=== PATIENT | male | born 2000 | race African-American/Black ===

== ENCOUNTER 2019-06-21 05:48 | Observation (INO) | payer SELFPAY ==
[2019-06-21] MEDS ORDERED: Adacel (T-DAP) 0.5 ML SYRINGE ONE (06:04)
[2019-06-21] MEDS ORDERED: Morphine 4 MG/ML VIAL ONE (06:46)
[2019-06-21 07:10] LABS: Hemoglobin 16.2 g/dL (14.0-18.0); Mean Corpuscular HGB CONC 32.4 g/dL (32.0-36.0); Mean Corpuscular Hemoglobin 28.1 pg (25.0-35.0); Mean Corpuscular Volume 86.7 fL (78.0-98.0); RBC Distribution Width 11.6 % (11.5-14.5); Red Blood Cell (RBC) Count 5.77 mill/uL (4.00-5.20)
[2019-06-21 07:21] LABS: ALT (SGPT) 21 U/L (8-55); AST (SGOT) 36 U/L (5-34); Albumin 4.7 g/dL (3.5-5.0); Alkaline Phosphatase 133 U/L (50-130); Anion Gap 15 mmol/L (10-20); BUN (Urea Nitrogen) 10 mg/dL (8.9-20.6); Bilirubin, Total 0.5 mg/dL (0.2-1.2); Calc. Creatinine Clearance 0 mL/min (70-130); Calcium 9.7 mg/dL (7.8-10.44); Carbon Dioxide 23 mmol/L (22-29); Chloride 104 mmol/L (98-107); Estimated GFR-MDRD Greater than 90; Globulin 3.3 g/dL (2.4-3.5); Glucose 108 mg/dL (70-105); Sodium 138 mmol/L (136-145)
[2019-06-21 07:34] LABS: Band 2 % (5-11); Eosinophils 1 % (0-10); Lymphocytes 5 % (28-48); MDiff Complete? YES; Mean Platelet Volume 7.3 fL (7.4-10.4); Monocytes 9 % (0-4); Neutrophil 83 % (31-61); Platelet Count 189 thou/uL (130-400); Platelet Morphology Comment Appears Adequate; White Blood Cell (WBC) Count 18.2 thou/uL (4.8-10.8)
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
[2019-06-21] MEDS ORDERED: Iopamidol 370 76% 100 ML VIAL ONE (08:27)
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
[2019-06-21] MEDS ORDERED: Ondansetron PF 4 MG/2 ML Vial IVP PRN (10:43)
[2019-06-21] MEDS ORDERED: Dextrose 5% in Water 1,000 ML IV PRN (10:43)
[2019-06-21] MEDS ORDERED: Dextrose 50% Abboject 50 ML SYRINGE SLOW IVP PRN (10:43)
[2019-06-21] MEDS ORDERED: Cyclobenzaprine 10 MG TAB PO PRN (10:43)
[2019-06-21] MEDS ORDERED: traMADol HCl 50 MG TAB PO PRN (10:43)
[2019-06-21] MEDS ORDERED: Sodium Chloride 0.9% 1,000 ML IV SCH (10:43)
[2019-06-21] MEDS ORDERED: Ondansetron ODT 4 MG TAB PO PRN (10:43)
[2019-06-21 10:55] VITALS: BMI 21.4
[2019-06-21] MEDS ORDERED: Famotidine 20 MG TAB PO SCH (11:45)
[2019-06-21] MEDS: Acetaminophen 500 MG TAB PO SCH ×3 (12:10→23:13)
[2019-06-21] MEDS: Ibuprofen 600 MG TAB PO SCH ×2 (12:11→18:50)
--- NOTE | 2019-06-21 19:58 | CON ---
DATE OF CONSULTATION: 06/22/[address] chest, abdomen, and pelvis with contrast revealed a 10% compression fracture at L1 vertebral body and possible a nondisplaced T12 compression fracture. Treatment of a stable anterior middle column thoracolumbar spine injuries is initially with analgesics and recumbency for comfort for 1 to 3 weeks. The patient should be placed in a corset, [place], or extension TLSO brace for 6 to 12 weeks. We will have him follow up in our clinic in 2 to 3 weeks. We will have him get upright x-rays of the c-spine AP/LAT views in 2 and 8 weeks. Job ID: [id number] MTDD
[2019-06-21] MEDS: Famotidine 20 MG TAB PO SCH (20:31)
[2019-06-21] MEDS: traMADol HCl 50 MG TAB PO PRN (20:33)
[2019-06-21] MEDS ORDERED: Gabapentin 300 MG CAP PO PRN (21:42)
[2019-06-21] MEDS ORDERED: Gabapentin 300 MG CAP PO SCH (21:45)
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
[2019-06-22] MEDS: Ibuprofen 600 MG TAB PO SCH ×2 (03:16→11:30)
[2019-06-22] MEDS: traMADol HCl 50 MG TAB PO PRN (03:16)
[2019-06-22] MEDS: Acetaminophen 500 MG TAB PO SCH ×2 (06:15→11:30)
[2019-06-22 06:44] LABS: #Basophils 0.1 thou/uL (0.0-0.2); #Eosinphils 0.1 thou/uL (0.0-0.7); #Lymphocytes 1.6 thou/uL (1.20-3.40); #Monocytes 0.5 thou/uL (0.11-0.59); #Neutrophils 5.1 thou/uL (1.40-6.50); %Basophils 0.8 % (0.0-1.0); %Eosinophils 1.9 % (0.0-10.0); %Lymphocytes 21.5 % (28.0-48.0); %Monocytes 6.1 % (0.0-4.0); %Neutrophils 69.7 % (31.0-61.0); Hemoglobin 14.2 g/dL (14.0-18.0); Mean Corpuscular HGB CONC 33.7 g/dL (32.0-36.0); Mean Corpuscular Hemoglobin 29.2 pg (25.0-35.0); Mean Corpuscular Volume 86.4 fL (78.0-98.0); Mean Platelet Volume 7.2 fL (7.4-10.4); Platelet Count 132 thou/uL (130-400); RBC Distribution Width 11.5 % (11.5-14.5); Red Blood Cell (RBC) Count 4.86 mill/uL (4.00-5.20); White Blood Cell (WBC) Count 7.3 thou/uL (4.8-10.8)
[2019-06-22 07:01] LABS: Anion Gap 11 mmol/L (10-20); BUN (Urea Nitrogen) 8 mg/dL (8.9-20.6); Calc. Creatinine Clearance 122 mL/min (70-130); Carbon Dioxide 26 mmol/L (22-29); Chloride 105 mmol/L (98-107); Estimated GFR-MDRD Greater than 90; Glucose 87 mg/dL (70-105); Potassium 4.1 mmol/L (3.5-5.1); Sodium 138 mmol/L (136-145)
[2019-06-22 07:46] VITALS: TEMP 97.9
[2019-06-22] MEDS: Famotidine 20 MG TAB PO SCH (08:56)
--- NOTE | 2019-06-22 08:56 | PDOC.EVN ---
Event Note - Event Note Event Note: Pt seen and examined. Home soon. Continue PT, has brace
[2019-06-22 10:42] VITALS: BP 126/84
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
== END 2019-06-22 14:05 | disposition home or self-care (01) ==
LOC: ERS 05:48 → SURG A 08:53 → INTOOBSV 08:53
PROVIDERS: ADMIT Surgery; ATTEND Surgery
DX: S32.019A Unspecified fracture of first lumbar vertebra, initial encounter for closed fracture (principal); S42.351A Displaced comminuted fracture of shaft of humerus, right arm, initial encounter for closed fracture; S06.0X9A Concussion with loss of consciousness of unspecified duration, initial encounter; S00.83XA Contusion of other part of head, initial encounter; V49.9XXA Car occupant (driver) (passenger) injured in unspecified traffic accident, initial encounter
CPT/HCPCS: 23605; 36415; 70450; 70486; 71260; 72125; 74177; 80048; 80053; 85025; 90471; 90715; 96361; 96374; 99292; G0378; G0390; J2270; Q9967